=== PATIENT | male | born 1955 | race Hispanic/Latino ===

== ENCOUNTER 2018-08-17 02:22 | Emergency (ER) | payer OTHER ==
[~2018-08-17] VITALS: Ht 162.6 cm; Wt 88.5 kg
[~2018-08-17 02:22] MED LIST: ALTACE2.5 MG PO; AMLODIPINE BESYL5 MG PO; ATENOLOL25 MG PO; CRESTOR20 MG PO; ECOTRIN325 MG PO; IMDUR30 MG PO; LOVAZA1 GM PO; NITROGLYCERIN0.4 MG SL; VITAMIN E400 UNI2 PO
--- OUTSIDE RECORDS SUMMARY | 2018-08-17 02:25 | XMS REPORT ---
[facility] Address Unknown Phone Unavailable Care Team Providers Care Panel Machine Setter Name Role Phone Unavailable Unavailable Payers Payer Name Policy Type Policy Number Effective Date Expiration Date Problems This patient has no known problems. Allergies, Adverse Reactions, Alerts Allergy Name Allergy Type Status Severity Reaction(s) Onset Date Inactive Date Treating Clinician Comments No Known Allergies DA Active U 2018-06-08 00:00:00 No Known Allergies DA Active U 2010-04-14 00:00:00 Medications This patient has no known medications. Results Test Description Test Time Test Comments Text Results Atomic Results Result Comments - NM MYOCRD SPECT R/S [facility] 2018-06-08 15:45:00 FAX: Asaf Spears MD [phone] Camps: PM St: REG FAX: Camron Rausch [phone] Name: FRANCISCA JAMES [facility] [place] : 1955 Age/S: 62/M [id number] Unit #: [id number] Loc: [place] [address] Phys: Camron Valdez MD Acct: [id number] Dis Date: Status: REG CLI PHONE #: [phone] Exam Date: 06/08/2018 1527 FAX #: Reason: ATHSCL HEART DISEASE OF [place] CORONARY EXAMS: CPT: [id number] NM MYOCRD SPECT R/S MULT [id number] Location of dictation: B2 HISTORY:ATHSCL HEART DISEASE OF [place] CORONARY TECHNIQUE: 10 mCi Tc-99m sestamibi was injected IV at rest. Non-gated SPECT imaging is performed. The patient is stressed with Lexiscan 0.4 mg/ 5 ml. At peak stress, 30 mCi Tc-99m sestamibi was injected IV. Gated SPECT imaging and post-processing are accomplished. FINDINGS: Comparison made to prior study chest x-ray 04/13/2010 showing poststernotomy changes. FINDINGS: The left ventricle is slightly dilated with end-diastolic volume of 119 mL. There is reversible perfusion involving the anterior wall of the left ventricle. No fixed per fusion defects seen. The computed calculated LVEF is 50 %. Concentric wall motion is identified. No segmental wall motion abnormality is seen. Quantitative analysis is within normal limits. IMPRESSION: 1. Findings suggest ischemia of the anterior wall. 2. Slightly dilated left ventricle with ejection fraction of 50%. at 4493 Reported and signed by: Laura Gallagher M.D. CC: Asaf Saxena MD; Camron Valdez MD Technologist: NOHEMY Lyle Transcribed Date/Time/By: 06/08/2018 ([id number]) :AngelaPXC Orig Print D/T: S: 06/08/2018 ([id number]) PAGE 1 Signed Report
[2018-08-17] MEDS ORDERED: PANTOPRAZOLE 40 MG 10ML VIAL IV STA (02:32)
[2018-08-17] MEDS ORDERED: ONDANSETRON HCL INJ 2MG/ML 2ML 2 MG/ML VIAL IV STA (02:32)
[2018-08-17 02:54] LABS: BASOPHILS % 0.3 % (0.0-1.0); EOSINOPHILS # (AUTO) 0.1 (0.0-0.4); EOSINOPHILS % 1.7 % (0.0-6.0); HEMOGLOBIN 14.2 g/dL (14.0-18.0); LYMPHOCYTES # (AUTO) 1.6 (1.0-3.2); LYMPHOCYTES % 25.8 % (18.0-39.1); MEAN CORPUSCULAR HEMOGLOBIN 32.9 pg (28-32); MEAN CORPUSCULAR HGB CONC 37.4 g/dL (31-35); MONOCYTES # (AUTO) 0.9 (0.2-0.8); MONOCYTES % 14.5 % (4.4-11.3); NEUTROPHILS # (AUTO) 3.5 (2.1-6.9); NEUTROPHILS % 57.4 % (38.7-80.0); PLATELET COUNT 180 x10e3/uL (140-360); RED BLOOD COUNT 4.32 x10e6/uL (4.3-5.7); RED CELL DISTRIBUTION WIDTH 11.9 % (11.7-14.4)
[2018-08-17 03:14] LABS: ALANINE AMINOTRANSFERASE 36 IU/L (0-55); ALBUMIN 3.7 g/dL (3.5-5.0); ALBUMIN/GLOBULIN RATIO 1.3 (0.8-2.0); ALKALINE PHOSPHATASE 52 IU/L (40-150); AMYLASE 53 U/L (25-125); ANION GAP 12.6 mmol/L (8-16); BLOOD UREA NITROGEN 18 mg/dL (7-26); BUN/CREATININE RATIO 20 (6-25); CALCIUM 8.7 mg/dL (8.4-10.2); CARBON DIOXIDE 24 mmol/L (22-29); CHLORIDE 92 mmol/L (98-107); CREATININE, SERUM 0.89 mg/dL (0.72-1.25); EST GLOMERULAR FILTRATION RATE > 60 ML/MIN (60-); GLUCOSE 108 mg/dL (74-118); LIPASE 13 U/L (8-78); POTASSIUM 3.6 mmol/L (3.5-5.1); SODIUM 125 mmol/L (136-145)
[2018-08-17] MEDS ORDERED: SODIUM CHLORIDE 0.9% 1000ML 1,000 ML IV ONE (03:30)
--- NOTE | 2018-08-17 04:09 | Diagnostic Imaging Report ---
EXAM: Abdomen and chest, 4 radiographs INDICATION: ^abd pain ^[id number] ^0252 ^Y COMPARISON: None FINDINGS: Nonobstructive bowel gas pattern. No signs of pneumoperitoneum. No calcification overlying renal shadows. No acute osseous abnormality. Small focal right lower lung field hazy opacification. Median sternotomy wires and mediastinal surgical clips. Borderline enlarged cardiac silhouette. IMPRESSION: 1. Nonobstructive bowel gas pattern. 2. Small focal right lower lung field hazy opacification, representing subsegmental atelectasis or developing pneumonia in the appropriate clinical context. Signed by: Dr. Jeremi Garcia MD on 08/17/2018 4:05 AM
== END 2018-08-17 04:58 | disposition home or self-care (01) ==
LOC: ER 02:22
DX: K21.9 Gastro-esophageal reflux disease without esophagitis (principal); E87.1 Hypo-osmolality and hyponatremia; Z95.1 Presence of aortocoronary bypass graft; Z82.49 Family history of ischemic heart disease and other diseases of the circulatory system
CPT/HCPCS: 36415; 74022; 80053; 82150; 83690; 85025; 96374; 96375; 99284; C9113; J2405; J7030